=== PATIENT | male | born 1990 | race Caucasian/White ===

== ENCOUNTER 2022-10-04 18:56 | Emergency (ER) | payer MEDICAID, OTHER ==
[~2022-10-04] VITALS: Ht 175.3 cm; Wt 74.1 kg
[2022-10-04 19:04] VITALS: BP 124/69
[2022-10-04] MEDS ORDERED: CYCL5TAB MT (22:40)
[2022-10-04] MEDS ORDERED: NAP5EC MT (22:40)
[2022-10-04] MEDS ORDERED: KETOROLAC 30MG/ML VIAL IM ONE (22:45)
== END 2022-10-04 23:00 | disposition home or self-care (01) ==
LOC: ER 18:56
DX: S29.012A Strain of muscle and tendon of back wall of thorax, initial encounter (principal); V43.52XA Car driver injured in collision with other type car in traffic accident, initial encounter; Y93.89 Activity, other specified; Y92.89 Other specified places as the place of occurrence of the external cause; Y99.8 Other external cause status
CPT/HCPCS: 96372; 99283; J1885